=== PATIENT | male | born 1965 | race Two or more races ===

== ENCOUNTER 2025-02-09 21:31 | Inpatient (IN) | payer OTHER ==
[~2025-02-09] VITALS: Ht 190.5 cm; Wt 109.8 kg
[2025-02-09] MEDS ORDERED: MORPHINE SULFATE 4 MG/ML SYR/VIAL IV PRN (21:45)
[2025-02-09] MEDS: ONDANSETRON HCL 4 MG/2 ML VIAL IV ONE (21:45)
--- NOTE | 2025-02-09 21:46 | ED.PDOC ---
HPI Comments 59-year-old male who came to ER via EMS for chest pains. Patient recently had heart attack 8 weeks ago, and had cardiac stents inserted. Patient was apparently well, until 2 hours ago, when he developed sudden onset substernal chest pains, pressure, constant, nonradiating, 8/10 intensity, associated shortness of breath and diaphoresis. Upon arrival of paramedics, patient was given 324 aspirin and 1 nitro, giving symptomatic relief of the pain. EKG taken EN route showed ST changes. Chief Complaint: Chest pain Time Seen by MD: 21:45 Reviewed Notes: Arts Therapist Notes Allergies: Coded Allergies: NO KNOWN ALLERGIES (Unverified , 02/09/25) Information Source: Patient, Emergency Med Personnel Mode of Arrival: EMS Severity: Severe Timing: Hours Duration: Since onset Prehospital treatment: 12 Lead EKG, ASA, NTG, Oxygen Location: Substernal Radiation: No Radiation Quality: Pressure Onset: With Light Exertion Cardiac Risk Factors: HTN, Other (Mi) History of: Similar pain in past, PA Associated Signs and Symptoms: SOB, Diaphoresis Past Medical History PAST MEDICAL HISTORY: HTN, PA Surgical History: PTCA Family History Family History: Reviewed,noncontributory to illness Social History Smoker: Non-Smoker Alcohol: Denies ETOH Use Drugs: Denies Drug Use Lives In: Home Constitutional: denies: chills, diaphoresis, fatigue, fever, malaise, sweats, weakness, others EENTM: denies: blurred vision, double vision, ear bleeding, ear discharge, ear drainage, ear pain, ear ringing, eye pain, eye redness, hearing loss, mouth pain, mouth swelling, nasal discharge, nose bleeding, nose congestion, nose pain, photophobia, tearing, throat pain, throat swelling, voice changes, others Respiratory: reports: SOB at rest, shortness of breath; denies: cough, hemoptysis, orthopnea, SOB with excertion, stridor, wheezing, others Cardiovascular: reports: chest pain, dizzy spells, diaphoresis; denies: Dyspnea on exertion, edema, irregular heart beat, left arm pain, lightheadedness, palpitations, PND, syncope, others Gastrointestinal: denies: abdomen distended, abdominal pain, blood streaked bowels, constipated, diarrhea, dysphagia, difficulty swallowing, hematemesis, melena, nausea, poor appetite, poor fluid intake, rectal bleeding, rectal pain, vomiting, others Genitourinary: denies: burning, dysuria, flank pain, frequency, hematuria, incontinence, penile discharge, penile sore, pain, testicle pain, testicle swelling, urgency, others Neurological: denies: dizziness, fainting, headache, left sided numbness, left sided weakness, numbness, paresthesia, pre-existing deficit, right sided numbness, right sided weakness, seizure, speech problems, tingling, tremors, weakness, others Musculoskeletal: denies: back pain, gout, joint pain, joint swelling, muscle pain, muscle stiffness, neck pain, others Integumetry: denies: bruises, change in color, change in hair/nails, dryness, laceration, lesions, lumps, rash, wounds, others Allergic/Immunocompromised: denies: Difficulty Healing, Frequent Infections, Hives, Itching, others Hematologic/Lymphatic: denies: anemia, blood clots, easy bleeding, easy bruising, swollen glands, others Endocrine: denies: excessive hunger, excessive sweating, excessive thirst, excessive urination, flushing, intolerance to cold, intolerance to heat, unexplained weight gain, unexplained weight loss, others Psychiatric: denies: anxiety, bipolar disorder, depression, hopeless, panic disorder, schizophrenia, sleepless, suicidal, others Physical Exam General Appearance: No Apparent Distress, Normal HEENT: Normal ENT Inspection, Pharynx Normal, TMs Normal Neck: Full Range of Motion, Non-Tender, Normal, Normal Inspection Respiratory: Chest Non-Tender, Lungs Clear, No Accessory Muscle Use, No Respiratory Distress, Normal Breath Sounds Cardiovascular: No Edema, No JVD, No Murmur, No Gallop, Normal Peripheral Pulses, Regular Rate/Rhythm Breast Exam: Deferred Gastrointestinal: No Organomegaly, Non Tender, No Pulsatile Mass, Normal Bowel Sounds, Soft Genitalia: Deferred Pelvic: Deferred Rectal: Deferred Extremities: No calf tenderness, Normal capillary refill, Normal inspection, Normal range of motion, Non-tender, No pedal edema Musculoskeletal : Apperance: Normal Neurologic: Alert, direct support staff member II-XII nml as Tested, No Motor Deficits, Normal Affect, Normal Mood, No Sensory Deficits Cerebellar Function: Normal Reflexes: Normal Skin: Dry, Normal Color, Warm Lymphatic: No Adenopathy EKG EKG : Pulse Rate (adult): 103 Cardiac Rhythm: ST Block: RBBB ST: New, Inf, Infarct Was a procedure done? Was a procedure done?: No CP Differential Dx Differential Diagnosis: Anxiety / Panic Attack, Electrolyte Disorder Differential Diagnosis: Angina, Chest Wall Pain, Costochondritis, Esophageal reflux/spasm, Gastritis, Myocardial Infarction, Pneumonia X-Ray, Labs, Meds, VS Vital Signs Date Time Temp Pulse Resp B/P (MAP) Pulse Ox O2 Delivery O2 Flow Rate FiO2 02/10/25 00:43 88 02/10/25 00:08 83 20 97 Room Air* 0 21 02/10/25 00:08 98.1 80 20 117/72 (87) 97 98.1 02/10/25 00:07 117/74 02/09/25 23:26 100 19 131/93 (106) 92 02/09/25 23:17 117/74 02/09/25 23:07 131/93 02/09/25 22:25 99 02/09/25 22:17 146/94 02/09/25 21:58 97.7 102 21 92 97.7 02/09/25 21:58 102 21 93 Nasal Cannula* 6 44 02/09/25 21:55 146/94 (111) 02/09/25 21:46 103 02/09/25 21:42 98.4 100 20 140/89 97 98.4 02/09/25 21:31 103 Lab Test 02/10/25 00:17 02/09/25 22:25 02/09/25 21:34 Range/Units Troponin I High Sensitivity Pending 50 48 </=54 ng/L White Blood Count 9.5 4.4-10.8 10^3/uL Red Blood Count 4.62 4.5-5.90 10^6/uL Hemoglobin 13.0 L 13.5-17.5 g/dL Hematocrit 38.8 L 41.0-53.0 % Mean Corpuscular Volume 84.1 80.0-100.0 fL Mean Corpuscular Hemoglobin 28.1 28.0-32.0 pg Mean Corpuscular Hemoglobin Concent 33.4 32.0-36.0 g/dL Red Cell Distribution Width 15.2 H 11.8-14.3 % Platelet Count 276 140-450 10^3/uL Mean Platelet Volume 6.8 L 6.9-10.8 fL Neutrophils (%) (Auto) 65.2 37.0-80.0 % Lymphocytes (%) (Auto) 16.5 10.0-50.0 % Monocytes (%) (Auto) 10.6 0.0-12.0 % Eosinophils (%) (Auto) 6.7 0.0-7.0 % Basophils (%) (Auto) 1.0 0.0-2.0 % Neutrophils # (Auto) 6.2 1.6-8.6 10 ^3/uL Lymphocytes # (Auto) 1.6 0.4-5.4 10 ^3/uL Monocytes # (Auto) 1.0 0-1.3 10 ^3/uL Eosinophils # (Auto) 0.6 0-0.8 10 ^3/uL Basophils # (Auto) 0.1 0-0.2 10 ^3/uL Nucleated Red Blood Cells 0.2 % Prothrombin Time 10.6 9.3-11.8 sec Prothrombin Time INR 1.00 0.9-1.15 Activated Partial Thromboplast Time 24.6 24.5-34.5 SEC Sodium Level 143 136-145 mmol/L Potassium Level 4.3 3.5-5.1 mmol/L Chloride Level 112 H 98-107 mmol/L Carbon Dioxide Level 19 L 20-31 mmol/L Anion Gap 12 5-15 Blood Urea Nitrogen 31 H 9-23 mg/dL Creatinine 1.39 H 0.700-1.30 mg/dL Glomerular Filtration Rate Calc 58 >90 mL/min BUN/Creatinine Ratio 22.3 H 10.0-20.0 Serum Glucose 107 H 74-106 mg/dL Calcium Level 9.2 8.7-10.4 mg/dL Magnesium Level 2.3 1.6-2.6 mg/dL Total Bilirubin 0.4 0.2-1.0 mg/dL Aspartate Amino Transferase (AST) 21 13-40 U/L Alanine Aminotransferase (ALT) 10 7-40 U/L Alkaline Phosphatase 184 H 46-116 U/L B-Type Natriuretic Peptide 656.36 0-100 pg/mL Total Protein 7.1 5.7-8.2 g/dL Albumin 4.0 3.2-4.8 g/dL Current Medications Medications (Trade) Dose Ordered Sig/Rah Route Start Time Stop Time Status Last Admin Nitroglycerin (Ntrostat Sublingual) 0.4 mg ONCE ONCE SL 02/09/25 22:15 02/09/25 22:16 DC 02/09/25 22:17 Nitroglycerin (Ntrostat Sublingual) 0.4 mg ONCE PRN SL 02/09/25 23:00 02/09/25 23:07 PROCEDURE(s): CXRP - CHEST PORTABLE REASON: chest pain ORDER NUMBER(s): [id number], ACCESSION NUMBER(s): [id number] INDICATION: chest pain TECHNIQUE: Frontal view of the chest. COMPARISON: None FINDINGS/IMPRESSION: Hazy opacity within the right mid and lower lung. Prominence of the interstitial markings. Enlarged cardiomediastinal silhouette. No definite pleural effusion, though the costophrenic angles are partially excluded from field of view. No pneumothorax. No acute osseous abnormality. Time of 1ST Reevaluation: 21:41 Reevaluation 1ST: Unchanged Patient Education/Counseling: Diagnosis, Treatment Family Education/Counseling: No Family Present SEPSIS Sepsis Screen Physician Orders Chest Portable (02/09/25 21:36) Heplock Iv (02/09/25 21:36) Morphine Sulfate Injection (02/09/25 21:45) Lead Project Manager (02/09/25 21:36) Troponin-I Hs (02/10/25 00:36) Nitroglycerin Sublingual (Ntrostat Subli (02/09/25 23:00) Vital Signs Date Time Temp Pulse Resp B/P (MAP) Pulse Ox O2 Delivery O2 Flow Rate FiO2 02/10/25 00:43 88 02/10/25 00:08 83 20 97 Room Air* 0 21 02/10/25 00:08 98.1 80 20 117/72 (87) 97 98.1 02/10/25 00:07 117/74 02/09/25 23:26 100 19 131/93 (106) 92 02/09/25 23:17 117/74 02/09/25 23:07 131/93 02/09/25 22:25 99 02/09/25 22:17 146/94 02/09/25 21:58 97.7 102 21 92 97.7 02/09/25 21:58 102 21 93 Nasal Cannula* 6 44 02/09/25 21:55 146/94 (111) 02/09/25 21:46 103 02/09/25 21:42 98.4 100 20 140/89 97 98.4 02/09/25 21:31 103 Laboratory Tests Test 02/09/25 21:34 White Blood Count 9.5 10^3/uL (4.4-10.8) Medications Medications Dose Ordered Sig/Rah Route Start Time Stop Time Status Last Admin Dose Admin Nitroglycerin 0.4 mg ONCE ONCE SL 02/09/25 22:15 02/09/25 22:16 DC 02/09/25 22:17 Nitroglycerin 0.4 mg ONCE PRN SL 02/09/25 23:00 02/09/25 23:07 Departure 1 Departure Time of Disposition: : Impression: Primary Impression: Acute coronary syndrome Disposition: ADMITTED INPATIENT Admit to: Tele Condition: Guarded Discharged With: Self Comments 59-year-old male with prior coronary artery disease and had stents placed a few months ago now with suspicious chest pain that was relieved with nitroglycerin. Dr. Cline cardiology was consulted and recommends medical management. Patient was given aspirin. Initial troponin is upper limits of normal at 50. Patient will need to be admitted for supportive care and further cardiac workup. Critical Care Note Critical Care Time?: Yes (35 min-critical care time only) Critical care comment: Acute chest pain Total critical care time: Approximately 36 minutes Due to a high probability of clinically significant, life threatening deterioration, the patient required my highest level of preparedness to intervene emergently and I personally spent this critical care time directly and personally managing the patient. This critical care time included obtaining a history; examining the patient; pulse oximetry; ordering and review of studies; arranging urgent treatment with development of a management plan; evaluation of patient's response to treatment; frequent reassessment; and, discussions with other providers. This critical care time was performed to assess and manage the high probability of imminent, life-threatening deterioration that could result in multi-organ failure. It was exclusive of separately billable procedures and treating other p atients. Stability Stability form required: No Heart Score Heart Score: Heart Score Response (Comments) Value History Moderate Suspicious 1 EKG Repolarization Disturb 1 Age 45-64 1 Risk Factors >3 or Hx ASHD 2 Troponin Normal limit 0 Total 5 I personally scribed for CHELSIE TAYLOR MD ([email or web address]) on 02/09/25 at 21:46. Electronically submitted by Joel Tabares ([email or web address]). I personally scribed for CHELSIE TAYLOR MD ([email or web address]) on 02/09/25 at 22:54. Electronically submitted by Joel Tabares ([email or web address]). CHELSIE TAYLOR MD Feb 09, 2025 21:46
[2025-02-09 21:54] LABS: Hematocrit 38.8 % (41.0-53.0); Hemoglobin 13.0 g/dL (13.5-17.5); Mean Corpuscular Hemoglobin 28.1 pg (28.0-32.0); Mean Corpuscular Volume 84.1 fL (80.0-100.0); Nucleated Red Blood Cells % 0.2 %
[2025-02-09 21:58] VITALS: PULSE 102; RESP 21; O2SAT 93
[2025-02-09 22:11] LABS: Alanine Aminotransferase 10 U/L (7-40); Albumin 4.0 g/dL (3.2-4.8); Anion Gap 12 (5-15); BUN/Creatinine Ratio 22.3 (10.0-20.0); Bilirubin, Total 0.4 mg/dL (0.2-1.0); Calcium 9.2 mg/dL (8.7-10.4); INR 1.0 (0.9-1.15); Magnesium 2.3 mg/dL (1.6-2.6); Partial Thromboplastin Time 24.6 SEC (24.5-34.5); Potassium 4.3 mmol/L (3.5-5.1); Prothrombin Time 10.6 sec (9.3-11.8); Sodium 143 mmol/L (136-145); Total Protein 7.1 g/dL (5.7-8.2)
[2025-02-09 22:14] LABS: Alkaline Phosphatase 184 U/L (46-116); Blood Urea Nitrogen 31 mg/dL (9-23); Carbon Dioxide 19 mmol/L (20-31); Chloride 112 mmol/L (98-107); Glucose 107 mg/dL (74-106)
[2025-02-09] MEDS: NITROGLYCERIN 0.4 MG SL TAB SL ONE (22:17)
--- NOTE | 2025-02-09 22:38 | DVH ---
INDICATION: chest pain TECHNIQUE: Frontal view of the chest. COMPARISON: None FINDINGS/IMPRESSION: Hazy opacity within the right mid and lower lung. Prominence of the interstitial markings. Enlarged cardiomediastinal silhouette. No definite pleural effusion, though the costophrenic angles are parti ally excluded from field of view. No pneumothorax. No acute osseous abnormality.
[2025-02-09] MEDS: NITROGLYCERIN 0.4 MG SL TAB SL PRN (23:07)
--- NOTE | 2025-02-09 23:32 | ECG ---
[facility] Test Date: 2025-02-09 Test Time: 21:30:49 Pat Name: VIMAL DENIS Department: [facility] ED Patient ID: [id number] Room: 0288T Gender: M Trawl Net Maker: MELY : 1965 Requested By: CHELSIE TAYLOR Order Number: [id number] Reading MD: Terrance Villeda Measurements Intervals [place] Rate: 103 P: 63 VA: 184 QRS: -79 QRSD: 165 T: 88 QT: 390 QTc: 511 Interpretive Statements Sinus tachycardia Right bundle branch block Inferior infarct, acute Anterior infarct, old Electronically Signed On 02-11-2025 22:12:42 PDT by Terrance Villeda Please click the below link to view image of tracing.
--- NOTE | 2025-02-09 23:32 | ECG ---
[facility] Test Date: 2025-02-09 Test Time: 22:25:20 Pat Name: VIMAL DENIS [facility] Patient [id number] Room: 0288T Gender: M Dice Table Person: SYD : 1965 Requested By: CHELSIE TAYLOR Order Number: [id number] Reading MD: Terrance Villeda Measurements Intervals [place] Rate: 99 P: 65 MS: 187 QRS: -76 QRSD: 160 T: 80 QT: 401 QTc: 515 Interpretive Statements Sinus rhythm Probable left atrial enlargement Right bundle branch block Inferior infarct, acute Anterior infarct, old Electronically Signed On 02-11-2025 22:12:54 PDT by Terrance Villeda Please click the below link to view image of tracing.
[2025-02-10] VITALS (12 sets, daily range): BP systolic 119–141; BP diastolic 40–105; PULSE 77–102; RESP 18–28; TEMP 97.6–98.8; O2SAT 92–97
--- NOTE | 2025-02-10 00:46 | ECG ---
[facility] Test Date: 2025-02-10 Test Time: 00:43:34 Pat Name: VIMAL DENIS Department: [facility] ED Patient ID: [id number] Room: 0288T Gender: M Marina Sales And Service Supervisor: HUMERA : 1965 Requested By: CHELSIE TAYLOR Order Number: [id number] Reading MD: Terrance Villeda Measurements Intervals [place] Rate: 88 P: 0 SD: 0 QRS: -73 QRSD: 158 T: 92 QT: 429 QTc: 519 Interpretive Statements Atrial fibrillation Right bundle branch block Probable anterolateral infarct, recent Electronically Signed On 02-11-2025 22:13:49 PDT by Terrance Villeda Please click the below link to view image of tracing.
[2025-02-10] MEDS ORDERED: MORPHINE SULFATE INJ 2 MG/ml SYRG IV PRN ×2 (06:30)
[2025-02-10] MEDS: ENOXAPARIN SOD 40 MG/0.4 ML SYRINGE SC ONE (06:30)
[2025-02-10] MEDS ORDERED: ONDANSETRON HCL 4 MG/2 ML VIAL IV PRN (06:30)
[2025-02-10] MEDS: SOD CHL 0.45% 1,000 ML IV ONE (06:30)
--- NOTE | 2025-02-10 06:53 | DVHHP2 ---
Admitting Diagnosis: Chest pain with elevated troponin History of Present Illness HPI 59 y.o. male with CAD, sp stent placement 2 months ago was brought to the ER, c/o sudden onset of substernal pressure-like chest pain, radiating to both arms, 8/10, associated with shortness of breath and cold sweats. Paramedics gave him ASA and Nitro that alleviated his pain. Per ER MD, en route EKG showed ST changes. Patient stated he uses CPAP at night. His troponin was checked 3 times and was progressively elevated Past Medical History Cardiac: CAD, HTN, SD, Hyperlipidemia Pulmonary: COPD H&P Exam Vital Signs Vital Signs Date Time Temp Pulse Resp B/P (MAP) Pulse Ox O2 Delivery O2 Flow Rate FiO2 02/10/25 05:36 98.1 78 20 107/73 (84) 99 98.1 02/10/25 04:07 50 02/10/25 04:02 Facial BiPAP Mask 02/10/25 00:08 0 General Appeara: Obese Head Exam: Normal inspection Neck Exam: Normal inspection Eye Exam: bilateral eye PERRL, bilateral eye EOMI Pulmonary/Respiratory: Crackles Cardiovascular/Chest: Normal Rhythm Abdominal Exam: Soft Neuro/Mental St: Alert, Oriented SEPSIS Sepsis Screen Date sepsis recognized/suspect: Feb 10, 2025 Time Sepsis recognized/suspect: 0013 Recent Procedure: No On Antibiotic Therapy: No Respiratory Rate >20: No Heart Rate >90: No Temp<36 C (96.8 F) or >38.3 C: No SBP <90 or MAP <65 mmHG: No New Acute Mental Status Change: No Is the patient on CPAP, BIPAP,: No Physician Orders Nitroglycerin Sublingual (Ntrostat Subli (02/09/25 23:00) Bipap/Cpap For Sleep Apnea (02/10/25 03:14) Admit (02/10/25 06:29) Complete Blood Count (02/11/25 06:00) Comprehensive Metabolic Panel (02/11/25 06:00) Echo 2d Mode Cardiac Dop (02/10/25 06:29) * Cardiology Consult (02/10/25 06:29) Nitroglycerin Sublingual (Ntrostat Subli (02/10/25 06:30) Morphine Sulfate Injection (02/10/25 06:30) Stat Ekg For Chest Pain (02/10/25 06:29) Notify Md Of Changes From Base (02/10/25 06:29) Sifter Operator For 24 Hours (02/10/25 06:29) Emergency Dysrhythmia Protocol (02/10/25 06:29) Rhythm Strips Once Every Shift (02/10/25 06:29) Oxygen By Nasal Cannula (02/10/25 06:29) Chest Without Contrast (02/10/25 06:29) Sod Chl 0.45% (Sodium Chloride 0.45% Via (02/10/25 06:30) Albuterol Medneb (Ventolin Medneb) (02/10/25 12:00) Ipratropium Medneb (Atrovent Medneb) (02/10/25 12:00) Morphine Sulfate Injection (02/10/25 06:30) Ondansetron Hcl (Zofran) (02/10/25 06:30) Enoxaparin Sodium (Lovenox) (02/10/25 06:30) Vital Signs Date Time Temp Pulse Resp B/P (MAP) Pulse Ox O2 Delivery O2 Flow Rate FiO2 02/10/25 05:36 98.1 78 20 107/73 (84) 99 98.1 02/10/25 04:07 77 18 119/68 95 50 02/10/25 04:02 83 123/40 97 Facial BiPAP Mask 50 02/10/25 02:09 98.1 77 20 119/68 (85) 97 98.1 02/10/25 00:43 88 02/10/25 00:08 83 20 97 Room Air* 0 21 02/10/25 00:08 98.1 80 20 117/72 (87) 97 98.1 02/10/25 00:07 117/74 02/10/25 00:00 95 02/09/25 23:26 100 19 131/93 (106) 92 02/09/25 23:17 117/74 02/09/25 23:07 131/93 Laboratory Tests Test 02/09/25 21:34 White Blood Count 9.5 10^3/uL (4.4-10.8) Medications Medications Dose Ordered Sig/Rah Route Start Time Stop Time Status Last Admin Dose Admin Nitroglycerin 0.4 mg ONCE ONCE SL 02/09/25 22:15 02/09/25 22:16 DC 02/09/25 22:17 0.4 MG Nitroglycerin 0.4 mg ONCE PRN SL 02/09/25 23:00 02/09/25 23:07 0.4 MG Labs/Xrays Labs Test 02/10/25 00:17 02/09/25 21:34 Range/Units Troponin I High Sensitivity 60 *H </=54 ng/L White Blood Count 9.5 4.4-10.8 10^3/uL Red Blood Count 4.62 4.5-5.90 10^6/uL Hemoglobin 13.0 L 13.5-17.5 g/dL Hematocrit 38.8 L 41.0-53.0 % Mean Corpuscular Volume 84.1 80.0-100.0 fL Mean Corpuscular Hemoglobin 28.1 28.0-32.0 pg Mean Corpuscular Hemoglobin Concent 33.4 32.0-36.0 g/dL Red Cell Distribution Width 15.2 H 11.8-14.3 % Platelet Count 276 140-450 10^3/uL Mean Platelet Volume 6.8 L 6.9-10.8 fL Neutrophils (%) (Auto) 65.2 37.0-80.0 % Lymphocytes (%) (Auto) 16.5 10.0-50.0 % Monocytes (%) (Auto) 10.6 0.0-12.0 % Eosinophils (%) (Auto) 6.7 0.0-7.0 % Basophils (%) (Auto) 1.0 0.0-2.0 % Neutrophils # (Auto) 6.2 1.6-8.6 10 ^3/uL Lymphocytes # (Auto) 1.6 0.4-5.4 10 ^3/uL Monocytes # (Auto) 1.0 0-1.3 10 ^3/uL Eosinophils # (Auto) 0.6 0-0.8 10 ^3/uL Basophils # (Auto) 0.1 0-0.2 10 ^3/uL Nucleated Red Blood Cells 0.2 % Prothrombin Time 10.6 9.3-11.8 sec Prothrombin Time INR 1.00 0.9-1.15 Activated Partial Thromboplast Time 24.6 24.5-34.5 SEC Sodium Level 143 136-145 mmol/L Potassium Level 4.3 3.5-5.1 mmol/L Chloride Level 112 H 98-107 mmol/L Carbon Dioxide Level 19 L 20-31 mmol/L Anion Gap 12 5-15 Blood Urea Nitrogen 31 H 9-23 mg/dL Creatinine 1.39 H 0.700-1.30 mg/dL Glomerular Filtration Rate Calc 58 >90 mL/min BUN/Creatinine Ratio 22.3 H 10.0-20.0 Serum Glucose 107 H 74-106 mg/dL Calcium Level 9.2 8.7-10.4 mg/dL Magnesium Level 2.3 1.6-2.6 mg/dL Total Bilirubin 0.4 0.2-1.0 mg/dL Aspartate Amino Transferase (AST) 21 13-40 U/L Alanine Aminotransferase (ALT) 10 7-40 U/L Alkaline Phosphatase 184 H 46-116 U/L B-Type Natriuretic Peptide 656.36 0-100 pg/mL Total Protein 7.1 5.7-8.2 g/dL Albumin 4.0 3.2-4.8 g/dL Assessment/Plan Problem List: (1) Chest pain due to coronary artery disease (2) Troponin level elevated Plan TELE, ECHO, Cardiology consult, CT, CPAP Plan discussed with: Patient MANAS REHMAN MD Feb 10, 2025 06:53
[2025-02-10] MEDS: NITROGLYCERIN 0.4 MG SL TAB SL PRN (07:30)
[2025-02-10] MEDS ORDERED: CLOPIDOGREL BISULFATE 75 MG TAB PO ONE ×2 (07:45→10:00)
--- NOTE | 2025-02-10 08:19 | DVH ---
Procedure: CT CHEST WITHOUT CONTRAST Reason for study/Clinical History: Abnormal CXR Comparison Study: XY CHEST PORTABLE on DOS: 02/09/25 Exam Date: 02/10/2025 07:22 AM TECHNIQUE: Multidetector CT of the chest was performed from the lung apices to the upper abdomen with out the use of intravenous contract. Axial, coronal and sagittal multiplanar reformats were performed . Radiation Dose Information: CT Dose: CTDI volume is 29.65 mGy. Dose-length product is 1332.7 mGy*cm The dose indicators for CT are the volume Computed Tomography (CT) Dose Index (CTDIvol) and the Dose Length Product (DLP), and are measured in units of mGy and mGy-cm, respectively. These indicators are not patient dose, but values generated from the CT scanner acquisition factors. The report includes radiation exposure data for exposures received during this examination. FINDINGS: Lower neck: Normal thyroid. Lungs: Bilateral lower lobe consolidation. Scattered pulmonary nodules for example in the left upper lobe measuring 4 mm and right lower lobe measuring 6 mm. Emphysema noted. Central airways: Patent. Pleura: Small bilateral pleural effusions. No pneumothorax. Heart/Vascular Structures: Normal heart size. There are coronary artery calcifications. No pericardia l effusion. Lymph Nodes: Mediastinal lymphadenopathy present. For reference, a subcarinal lymph node measures 2.0 cm in short axis. Right hilar lymph nodes are enlarged measuring up to 2.0 cm in short axis. Musculoskeletal: No acute osseous abnormality. Soft tissues: Normal. Upper abdomen: Hyperdensity noted in the spleen which could be artifactual secondary to the patient's arms/ beam hardening artifact from Bones. IMPRESSION: 1. Bilateral lower lobe pneumonia. Small bilateral pleural effusions. 2. Pulmonary nodules measuring up to 3 mm. 3. Mediastinal and hilar lymphadenopathy. This may be reactive however metastatic adenopathy or lymph morales not excluded. 4. Hypodensity in the spleen which may be artifactual from the patient's arms however splenic infarct is not excluded. Radiation optimization: All CT scans at this facility use at least one of these dose optimization ada hniques: automated exposure control mA and/or kV adjustment per patient size (includes targeted exam s where dose is matched to clinical indication) or iterative reconstruction.
[2025-02-10] MEDS: OPTISON 3ml Vial for INJ IV ONE (10:08)
[2025-02-10] MEDS: CLOPIDOGREL BISULFATE 75 MG TAB PO SCH (10:13)
[2025-02-10 10:40] LABS: Base Excess -7.0 mmol/L (-2.0-3.0)
[2025-02-10] MEDS: FUROSEMIDE 40 MG/4 ML VIAL IV SCH (10:41)
[2025-02-10] MEDS: FUROSEMIDE 100 MG/10ML VIAL IV ONE (10:41)
[2025-02-10] MEDS: APIXABAN 5 MG TAB PO SCH (11:36)
[2025-02-10] MEDS: CARVEDILOL 3.125 MG TAB PO SCH (11:38)
[2025-02-10] MEDS: IPRATROPIUM BROM 0.5 MG/2.5ML INH SOL NEB SCH (11:42)
[2025-02-10] MEDS: ALBUTEROL SULF 2.5 MG/0.5ML(0.5%) NEB SOLN NEB SCH (11:42)
[2025-02-10] MEDS: AZITHROMYCIN 500MG/ 250ML 250 ML IV SCH (12:40)
[2025-02-10] MEDS ORDERED: TICA90TA PO (16:46)
[2025-02-10] MEDS ORDERED: FURO1TAB33 PO (17:09)
[2025-02-10] MEDS ORDERED: EMPA1TAB3 PO (17:09)
[2025-02-10] MEDS ORDERED: ASPI1TAB20 PO (17:09)
[2025-02-10] MEDS ORDERED: FUROSEMIDE 40 MG TAB PO SCH (18:00)
[2025-02-10] MEDS ORDERED: LEVO75CA3 PO (18:53)
--- NOTE | 2025-02-10 19:00 | DVHINCON2 ---
Date of service: Feb 10, [address] dee dee monroe Reason for Consultation dictated [id number] Family History: Hypertension G8 MOTHER, Onset:50's - 60 G8 FATHER, Onset:60 years & older Allergies: Coded Allergies: NO KNOWN ALLERGIES (Unverified , 02/09/25) Home Meds Active Scripts Albuterol Sulfate (VENTOLIN MDI) 90 Mcg Ih, 90 MCG IN Q4HP PRN, #1 INH 1 Refill Take as needed for shortness of breath. Prov:IRIS WU DO 02/11/25 Methylprednisolone (Medrol Dosepak) 4 Mg Luis Angel, 4 MG PO UD, #21 TAB UAD Prov:IRIS WU DO 02/11/25 Doxycycline (Monohydrate) (Doxycycline) 100 Mg Tab, 100 MG PO BID for 5 Days, #10 TAB 0 Refills Prov:IRIS WU DO 02/11/25 Amoxicillin & Pot Clavulanate (AUGMENTIN TABLET) 875 Mg Tb, 875 MG PO BID for 5 Days, #10 TAB 0 Refills Prov:IRIS WU DO 02/11/25 Sacubitril-Valsartan (Entresto 24-26 mg) 1 Tab Tab, 0.5 TAB PO BID for 30 Days, #30 TAB 1 Refill Prov:IRIS WU DO 02/11/25 Nitroglycerin (NTROSTAT SUBLINGUAL) 0.4 Mg Sl, 0.4 MG SL Q5MINP PRN for 30 Days, #30 TAB 1 Refill Take only as needed for chest pain. If persists, return to ER. Prov:IRIS WU DO 02/11/25 Clopidogrel Bisulfate (CLOPIDOGREL) 75 Mg Tab, 75 MG PO DAILY for 30 Days, #30 TAB 1 Refill Prov:IRIS WU DO 02/11/25 Apixaban Base (ELIQUIS) 5 Mg Tab, 5 MG PO BID for 30 Days, #60 TAB 1 Refill Prov:IRIS WU DO 02/11/25 Reported Medications Cvcwndauekd-Kddfzvsmmveq-Iseek (Trelegy Ellipta 100-62.5-25 Mcg/INH) 1 Aer Aer, 1 AER IN DAILY, AER 02/10/25 Carvedilol (Carvedilol) 3.125 Mg Tab, 1 TAB PO BID, #60 TAB 3 Refills 02/10/25 Atorvastatin Calcium (Lipitor) 40 Mg Tab, 1 TAB PO QPM, #90 TAB 1 Refill 02/10/25 Pantoprazole Sodium Sesquihydr (Protonix) 40 Mg Tab, 40 MG PO DAILY, #30 TAB 02/10/25 Levothyroxine Sodium (Levothyroxine Sodium) 75 Mcg Cap, 75 MCG PO QAM, CAP 02/10/25 Empagliflozin (Jardiance) 25 Mg Tab, 81 MG PO DAILY, TAB 02/10/25 Furosemide (Lasix) 20 Mg Tb, 1 TAB PO DAILY, #90 TAB 1 Refill 02/10/25 Current Medications Current Medications Medications (Trade) Dose Ordered Sig/Rah Route PRN Reason Start Time Stop Time Status Last Admin Morphine Sulfate 2 mg Q4HPRN PRN IV SEVERE PAIN (7-10 PAIN SCALE) 02/09/25 21:45 02/10/25 06:39 DC Nitroglycerin (Ntrostat Sublingual) 0.4 mg ONCE PRN SL FOR CHEST PAIN 02/09/25 23:00 02/10/25 06:39 DC 02/09/25 23:07 Nitroglycerin (Ntrostat Sublingual) 0.4 mg Q5MINP PRN SL FOR CHEST PAIN 02/10/25 06:30 02/10/25 10:30 Morphine Sulfate 2 mg Q30M PRN IV FOR CHEST PAIN 02/10/25 06:30 Albuterol (Ventolin Medneb) 2.5 mg Q6HR NEB 02/10/25 12:00 02/10/25 11:42 Ipratropium [place] (Atrovent Medneb) 0.5 mg Q6HR NEB 02/10/25 12:00 02/10/25 11:42 Morphine Sulfate 2 mg Q4HPRN PRN IV SEVERE PAIN (7-10 PAIN SCALE) 02/10/25 06:30 Ondansetron HCl (Zofran) 4 mg Q6HPRN PRN IV NAUSEA / VOMITING 02/10/25 06:30 Aspirin 81 mg DAILY PO 02/10/25 07:45 Cancel Atorvastatin Calcium (Lipitor) 80 mg HS PO 02/10/25 22:00 Clopidogrel Bisulfate (Plavix) 75 mg DAILY PO 02/10/25 10:00 02/10/25 10:13 Carvedilol (Coreg Tablet) 3.125 mg Q12HR PO 02/10/25 10:00 02/10/25 11:38 Sacubitril/ Valsartan (Entresto 24-26 Mg tab) 0.5 tab BID PO 02/10/25 22:00 Apixaban (Eliquis) 5 mg BID PO 02/10/25 10:00 02/10/25 11:36 Furosemide (Lasix Tablet) 20 mg BIDD PO 02/10/25 18:00 02/10/25 09:43 DC Furosemide (Lasix Injection) 40 mg DAILY IV 02/10/25 10:00 02/10/25 14:13 DC Ceftriaxone Sodium 50 ml @ 100 mls/hr DAILY@09 IV 02/10/25 10:37 02/10/25 11:36 Azithromycin 250 ml @ 125 mls/hr DAILY IV 02/10/25 11:15 02/10/25 12:40 Furosemide (Lasix Injection) 20 mg DAILY IV 02/11/25 10:00 Vital Signs Vital Signs Date Time Temp Pulse Resp B/P (MAP) Pulse Ox O2 Delivery O2 Flow Rate FiO2 02/10/25 17:39 99 24 92 Oxymizer 12 N/A 02/10/25 17:39 97.6 140/102 (115) 97.6 Labs/Diagnostic Data Labs Test 02/10/25 10:34 02/10/25 00:17 02/09/25 21:34 Range/Units Blood Gas Specimen Type Arterial Blood Gas Sample Site Right radial Blood Gas Patient Temperature 37.0 Arterial Blood Date Drawn [id number] Arterial Blood pH 7.437 7.350-7.450 Arterial Blood Partial Pressure CO2 22.7 L 35.0-48.0 mmHg Arterial Blood Partial Pressure O2 75.0 L 83.0-108.0 mmHg Arterial Blood HCO3 15.0 L 21.0-28.0 mmol/L Arterial Blood Oxygen Saturation 94.8 94.0-98.0 % Arterial Blood Base Excess -7.0 L -2.0-3.0 mmol/L Arterial Blood Oxyhemoglobin 93.5 L 94.0-98.0 % Arterial Blood Carboxyhemoglobin 0.8 0.5-1.5 % Arterial Blood Methemoglobin 0.6 0.0-1.5 % Jeromy Test Modified Blood Gas Total Hemoglobin 14.30 13.5-17.5 g/dL Blood Gas Liter Flow 10.00 Blood Gas Modality Oxymizer FiO2 % 72.0 Troponin I High Sensitivity 60 *H </=54 ng/L White Blood Count 9.5 4.4-10.8 10^3/uL Red Blood Count 4.62 4.5-5.90 10^6/uL Hemoglobin 13.0 L 13.5-17.5 g/dL Hematocrit 38.8 L 41.0-53.0 % Mean Corpuscular Volume 84.1 80.0-100.0 fL Mean Corpuscular Hemoglobin 28.1 28.0-32.0 pg Mean Corpuscular Hemoglobin Concent 33.4 32.0-36.0 g/dL Red Cell Distribution Width 15.2 H 11.8-14.3 % Platelet Count 276 140-450 10^3/uL Mean Platelet Volume 6.8 L 6.9-10.8 fL Neutrophils (%) (Auto) 65.2 37.0-80.0 % Lymphocytes (%) (Auto) 16.5 10.0-50.0 % Monocytes (%) (Auto) 10.6 0.0-12.0 % Eosinophils (%) (Auto) 6.7 0.0-7.0 % Basophils (%) (Auto) 1.0 0.0-2.0 % Neutrophils # (Auto) 6.2 1.6-8.6 10 ^3/uL Lymphocytes # (Auto) 1.6 0.4-5.4 10 ^3/uL Monocytes # (Auto) 1.0 0-1.3 10 ^3/uL Eosinophils # (Auto) 0.6 0-0.8 10 ^3/uL Basophils # (Auto) 0.1 0-0.2 10 ^3/uL Nucleated Red Blood Cells 0.2 % Prothrombin Time 10.6 9.3-11.8 sec Prothrombin Time INR 1.00 0.9-1.15 Activated Partial Thromboplast Time 24.6 24.5-34.5 SEC Sodium Level 143 136-145 mmol/L Potassium Level 4.3 3.5-5.1 mmol/L Chloride Level 112 H 98-107 mmol/L Carbon Dioxide Level 19 L 20-31 mmol/L Anion Gap 12 5-15 Blood Urea Nitrogen 31 H 9-23 mg/dL Creatinine 1.39 H 0.700-1.30 mg/dL Glomerular Filtration Rate Calc 58 >90 mL/min BUN/Creatinine Ratio 22.3 H 10.0-20.0 Serum Glucose 107 H 74-106 mg/dL Calcium Level 9.2 8.7-10.4 mg/dL Magnesium Level 2.3 1.6-2.6 mg/dL Total Bilirubin 0.4 0.2-1.0 mg/dL Aspartate Amino Transferase (AST) 21 13-40 U/L Alanine Aminotransferase (ALT) 10 7-40 U/L Alkaline Phosphatase 184 H 46-116 U/L B-Type Natriuretic Peptide 656.36 0-100 pg/mL Total Protein 7.1 5.7-8.2 g/dL Albumin 4.0 3.2-4.8 g/dL Plan discussed with: Patient LAYO JONES MD Feb 10, 2025 19:00
[2025-02-10] MEDS ORDERED: LOSA25TA5 PO (19:43)
[2025-02-10] MEDS ORDERED: PANT40TA2 PO (19:43)
[2025-02-10] MEDS ORDERED: ATOR-507 PO (19:49)
[2025-02-10] MEDS ORDERED: FLUT1AER3 IN (19:49)
[2025-02-10] MEDS ORDERED: CARV3.1240 PO (19:49)
[2025-02-10] MEDS ORDERED: MORPHINE SULFATE 4 MG/ML SYR/VIAL IV PRN (20:30)
[2025-02-10] MEDS: methylPREDNISolone SOD SUCC 40 MG/ML VL IV SCH (20:46)
[2025-02-10] MEDS: SACUBITRIL-VALSARTAN 24mg/26mg TAB PO SCH (20:48)
[2025-02-10] MEDS: ATORVASTATIN 20 MG TAB PO SCH (20:50)
[2025-02-11] VITALS (13 sets, daily range): BP systolic 116–139; BP diastolic 83–95; PULSE 88–103; RESP 18–20; TEMP 97.5–97.9; O2SAT 90–100
--- NOTE | 2025-02-11 00:11 | DVHINCON2 ---
Date of service: Feb 10, 2025 Referring Physician David Reason for Consultation Chest pain, elevated troponin History of Present Illness This is a 59-year-old male with a PMH of HTN, [place] who presented to the ED via EMS for a complaint of chest pain with associated shortness of breath and diaphore sis x2 hours. Upon arrival of paramedics on scene, patient was given 324 aspirin and 1 nitro which gave the patient relief. EKG taken en route showed ST changes. Patient recently had heart attack 8 weeks ago and had cardiac stents placed. . BUN 31, [employer] 1.39, TROP 48 > 50 > 60. Chest x-ray shows hazy opacity within the right mid and lower lung, prominence of the interstitial markings.Patient was admitted to the hospital. I am asked to consult on this patient. Family History: Hypertension G8 MOTHER, Onset:50's - 60 G8 FATHER, Onset:60 years & older Allergies: Coded Allergies: NO KNOWN ALLERGIES (Unverified , 02/09/25) Home Meds Reported Medications Okuvlooupmz-Zundbxfpijzr-Nneus (Trelegy Ellipta 100-62.5-25 Mcg/INH) 1 Aer Aer, 1 AER IN DAILY, AER 02/10/25 Carvedilol (Carvedilol) 3.125 Mg Tab, 1 TAB PO BID, #60 TAB 3 Refills 02/10/25 Atorvastatin Calcium (Lipitor) 40 Mg Tab, 1 TAB PO QPM, #90 TAB 1 Refill 02/10/25 Pantoprazole Sodium Sesquihydr (Protonix) 40 Mg Tab, 40 MG PO DAILY, #30 TAB 02/10/25 Losartan Potassium (Cozaar) 25 Mg Tab, 1 TAB PO DAILY, #30 TAB 5 Refills 02/10/25 Levothyroxine Sodium (Levothyroxine Sodium) 75 Mcg Cap, 75 MCG PO QAM, CAP 02/10/25 Empagliflozin (Jardiance) 25 Mg Tab, 81 MG PO DAILY, TAB 02/10/25 Aspirin (Aspir-81) 81 Mg Tab, 1 TAB PO DAILY, #30 TAB 5 Refills 02/10/25 Furosemide (Lasix) 20 Mg Tb, 1 TAB PO DAILY, #90 TAB 1 Refill 02/10/25 Ticagrelor Base (BRILINTA) 90 Mg Tab, 90 MG PO BID, TAB 02/10/25 Current Medications Current Medications Medications (Trade) Dose Ordered Sig/Rah Route PRN Reason Start Time Stop Time Status Last Admin Morphine Sulfate 2 mg Q4HPRN PRN IV SEVERE PAIN (7-10 PAIN SCALE) 02/09/25 21:45 02/10/25 06:39 DC Nitroglycerin (Ntrostat Sublingual) 0.4 mg ONCE PRN SL FOR CHEST PAIN 02/09/25 23:00 02/10/25 06:39 DC 02/09/25 23:07 Nitroglycerin (Ntrostat Sublingual) 0.4 mg Q5MINP PRN SL FOR CHEST PAIN 02/10/25 06:30 02/10/25 10:30 Morphine Sulfate 2 mg Q30M PRN IV FOR CHEST PAIN 02/10/25 06:30 Albuterol (Ventolin Medneb) 2.5 mg Q6HR NEB 02/10/25 12:00 02/10/25 18:52 Ipratropium [place] (Atrovent Medneb) 0.5 mg Q6HR NEB 02/10/25 12:00 02/10/25 18:52 Morphine Sulfate 2 mg Q4HPRN PRN IV SEVERE PAIN (7-10 PAIN SCALE) 02/10/25 06:30 02/10/25 20:20 DC Ondansetron HCl (Zofran) 4 mg Q6HPRN PRN IV NAUSEA / VOMITING 02/10/25 06:30 Aspirin 81 mg DAILY PO 02/10/25 07:45 Cancel Atorvastatin Calcium (Lipitor) 80 mg HS PO 02/10/25 22:00 Clopidogrel Bisulfate (Plavix) 75 mg DAILY PO 02/10/25 10:00 02/10/25 10:13 Carvedilol (Coreg Tablet) 3.125 mg Q12HR PO 02/10/25 10:00 02/10/25 11:38 Sacubitril/ Valsartan (Entresto 24-26 Mg tab) 0.5 tab BID PO 02/10/25 22:00 Apixaban (Eliquis) 5 mg BID PO 02/10/25 10:00 02/10/25 11:36 Furosemide (Lasix Tablet) 20 mg BIDD PO 02/10/25 18:00 02/10/25 09:43 DC Furosemide (Lasix Injection) 40 mg DAILY IV 02/10/25 10:00 02/10/25 14:13 DC Ceftriaxone Sodium 50 ml @ 100 mls/hr DAILY@09 IV 02/10/25 10:37 02/10/25 11:36 Azithromycin 250 ml @ 125 mls/hr DAILY IV 02/10/25 11:15 02/10/25 12:40 Furosemide (Lasix Injection) 20 mg DAILY IV 02/11/25 10:00 Levothyroxine Sodium (Synthroid Tablet) 75 mcg QAM@0600 PO 02/11/25 06:00 Methylprednisolone Sodium Succinate (Solu Medrol) 40 mg BID IV 02/10/25 22:00 Morphine Sulfate 2 mg Q4HPRN PRN IV SEVERE PAIN (7-10 PAIN SCALE) 02/10/25 20:30 Review of Systems Constitutional: denies: chills, diaphoresis, fatigue, fever, malaise, sweats, weakness, others EENTM: denies: blurred vision, double vision, ear bleeding, ear discharge, ear drainage, ear pain, ear ringing, eye pain, eye redness, hearing loss, mouth pain, mouth swelling, nasal discharge, nose bleeding, nose congestion, nose pain, photophobia, tearing, throat pain, throat swelling, voice changes, others Respiratory: reports: SOB at rest, shortness of breath; denies: cough, hemoptysis, orthopnea, SOB with excertion, stridor, wheezing, others Cardiovascular: reports: chest pain, dizzy spells, diaphoresis; denies: Dyspnea on exertion, edema, irregular heart beat, left arm pain, lightheadedness, palpitations, PND, syncope, others Gastrointestinal: denies: abdomen distended, abdominal pain, blood streaked bowels, constipated, diarrhea, dysphagia, difficulty swallowing, hematemesis, melena, nausea, poor appetite, poor fluid intake, rectal bleeding, rectal pain, vomiting, others Genitourinary: denies: burning, dysuria, flank pain, frequency, hematuria, incontinence, penile discharge, penile sore, pain, testicle pain, testicle swelling, urgency, others Neurological: denies: dizziness, fainting, headache, left sided numbness, left sided weakness, numbness, paresthesia, pre-existing deficit, right sided numbness, right sided weakness, seizure, speech problems, tingling, tremors, weakness, others Musculoskeletal: denies: back pain, gout, joint pain, joint swelling, muscle pain, muscle stiffness, neck pain, others Integumetry: denies: bruises, change in color, change in hair/nails, dryness, laceration, lesions, lumps, rash, wounds, others Allergic/Immunocompromised: denies: Difficulty Healing, Frequent Infections, Hives, Itching, others Hematologic/Lymphatic: denies: anemia, blood clots, easy bleeding, easy bruising, swollen glands, others Endocrine: denies: excessive hunger, excessive sweating, excessive thirst, excessive urination, flushing, intolerance to cold, intolerance to heat, unexplained weight gain, unexplained weight loss, others Psychiatric: denies: anxiety, bipolar disorder, depression, hopeless, panic disorder, schizophrenia, sleepless, suicidal, others Vital Signs Vital Signs Date Time Temp Pulse Resp B/P (MAP) Pulse Ox O2 Delivery O2 Flow Rate FiO2 02/10/25 18:58 102 24 97 02/10/25 18:52 Oxymizer 10 72 72 02/10/25 17:39 97.6 140/102 (115) 97.6 Physical Exam GENERAL: Alert and oriented x 3. No acute distress. EYES: PERRL, EOMI. Anicteric. HENT: Moist mucous membranes. LUNGS: Clear to auscultation bilaterally. CARDIOVASCULAR: Regular rate and rhythm. ABDOMEN: Soft, nontender and nondistended. EXTREMITIES: No edema. NEUROLOGIC: No focal neurological deficits. SKIN: Warm, dry. Labs/Diagnostic Data Labs Test 02/10/25 10:34 02/10/25 00:17 02/09/25 21:34 Range/Units Blood Gas Specimen Type Arterial Blood Gas Sample Site Right radial Blood Gas Patient Temperature 37.0 Arterial Blood Date Drawn [id number] Arterial Blood pH 7.437 7.350-7.450 Arterial Blood Partial Pressure CO2 22.7 L 35.0-48.0 mmHg Arterial Blood Partial Pressure O2 75.0 L 83.0-108.0 mmHg Arterial Blood HCO3 15.0 L 21.0-28.0 mmol/L Arterial Blood Oxygen Saturation 94.8 94.0-98.0 % Arterial Blood Base Excess -7.0 L -2.0-3.0 mmol/L Arterial Blood Oxyhemoglobin 93.5 L 94.0-98.0 % Arterial Blood Carboxyhemoglobin 0.8 0.5-1.5 % Arterial Blood Methemoglobin 0.6 0.0-1.5 % Jeromy Test Modified Blood Gas Total Hemoglobin 14.30 13.5-17.5 g/dL Blood Gas Liter Flow 10.00 Blood Gas Modality Oxymizer FiO2 % 72.0 Troponin I High Sensitivity 60 *H </=54 ng/L White Blood Count 9.5 4.4-10.8 10^3/uL Red Blood Count 4.62 4.5-5.90 10^6/uL Hemoglobin 13.0 L 13.5-17.5 g/dL Hematocrit 38.8 L 41.0-53.0 % Mean Corpuscular Volume 84.1 80.0-100.0 fL Mean Corpuscular Hemoglobin 28.1 28.0-32.0 pg Mean Corpuscular Hemoglobin Concent 33.4 32.0-36.0 g/dL Red Cell Distribution Width 15.2 H 11.8-14.3 % Platelet Count 276 140-450 10^3/uL Mean Platelet Volume 6.8 L 6.9-10.8 fL Neutrophils (%) (Auto) 65.2 37.0-80.0 % Lymphocytes (%) (Auto) 16.5 10.0-50.0 % Monocytes (%) (Auto) 10.6 0.0-12.0 % Eosinophils (%) (Auto) 6.7 0.0-7.0 % Basophils (%) (Auto) 1.0 0.0-2.0 % Neutrophils # (Auto) 6.2 1.6-8.6 10 ^3/uL Lymphocytes # (Auto) 1.6 0.4-5.4 10 ^3/uL Monocytes # (Auto) 1.0 0-1.3 10 ^3/uL Eosinophils # (Auto) 0.6 0-0.8 10 ^3/uL Basophils # (Auto) 0.1 0-0.2 10 ^3/uL Nucleated Red Blood Cells 0.2 % Prothrombin Time 10.6 9.3-11.8 sec Prothrombin Time INR 1.00 0.9-1.15 Activated Partial Thromboplast Time 24.6 24.5-34.5 SEC Sodium Level 143 136-145 mmol/L Potassium Level 4.3 3.5-5.1 mmol/L Chloride Level 112 H 98-107 mmol/L Carbon Dioxide Level 19 L 20-31 mmol/L Anion Gap 12 5-15 Blood Urea Nitrogen 31 H 9-23 mg/dL Creatinine 1.39 H 0.700-1.30 mg/dL Glomerular Filtration Rate Calc 58 >90 mL/min BUN/Creatinine Ratio 22.3 H 10.0-20.0 Serum Glucose 107 H 74-106 mg/dL Calcium Level 9.2 8.7-10.4 mg/dL Magnesium Level 2.3 1.6-2.6 mg/dL Total Bilirubin 0.4 0.2-1.0 mg/dL Aspartate Amino Transferase (AST) 21 13-40 U/L Alanine Aminotransferase (ALT) 10 7-40 U/L Alkaline Phosphatase 184 H 46-116 U/L B-Type Natriuretic Peptide 656.36 0-100 pg/mL Total Protein 7.1 5.7-8.2 g/dL Albumin 4.0 3.2-4.8 g/dL Assessment Chest pain. Elevated troponin. CAD. Thrombus at LV [place]. Plan/Recommendation I agree with your ongoing assessment and care of plan. The patient is advised to see me outpatient in a few days. Echocardiogram. Start Eliquis. Stop aspirin. Continue Plavix. Coreg. Entresto. Spironolactone. Diuretics with Lasix. IV antibiotics as ordered. Morphine for pain management. Additional plan as per the hospital course. A total of 45 minutes was spent reviewing the patient record, examining the patient, making a diagnostic and therapeutic plan, discussing this plan with medical personnel, following up on diagnostic studies and following the patient for clinical stability excluding any and all procedures. At least 50% of this time was spent in direct, [id number] contact. Plan discussed with: Patient JANA THOMPSON MD Feb 10, 2025 20:37
[2025-02-11 04:47] LABS: Urine Protein, UAD Negative (Negative)
[2025-02-11] MEDS: LEVOTHYROXINE SODIUM 25 MCG TAB PO SCH (05:01)
[2025-02-11 08:01] LABS: Anion Gap 11 (5-15); Potassium 4.4 mmol/L (3.5-5.1); Sodium 140 mmol/L (136-145)
[2025-02-11 08:03] LABS: Calcium 9.3 mg/dL (8.7-10.4)
[2025-02-11 08:05] LABS: Carbon Dioxide 20 mmol/L (20-31); Chloride 109 mmol/L (98-107); Hematocrit 40.4 % (41.0-53.0); Hemoglobin 13.9 g/dL (13.5-17.5); Mean Corpuscular Hemoglobin 28.6 pg (28.0-32.0); Mean Corpuscular Volume 83.0 fL (80.0-100.0); Nucleated Red Blood Cells % 0.2 %
[2025-02-11 08:07] LABS: BUN/Creatinine Ratio 23.9 (10.0-20.0)
[2025-02-11 08:09] LABS: Blood Urea Nitrogen 34 mg/dL (9-23); Glucose 132 mg/dL (74-106)
[2025-02-11] MEDS: FUROSEMIDE 40 MG/4 ML VIAL IV SCH (09:46)
--- NOTE | 2025-02-11 10:27 | DVHINCON2 ---
DATE OF CONSULTATION: 02/10/[address] Gomez, thank you so much for letting me participate in the care of the patient. HISTORY OF PRESENT ILLNESS: The patient is a 59-year-old gentleman who was brought in with shortness of breath and chest pain. He had, he says, heart attack ____ about 6-8 weeks ago, and he had a stent placement at that time. He was given Plavix and Eliquis. He says he ran out of the medication and then he started having the sudden onset of substernal pressure and chest pain radiating to both arms with shortness of breath when he was brought into the hospital for further management. He was given aspirin and nitroglycerin. He does have sleep apnea syndrome and uses CPAP at night. He has not been diagnosed to have COPD so far. Basically, CAD, hypertension, [place], and hyperlipidemia. He does not take any medication for COPD, has not been diagnosed. Morbidly obese. On examination, diminished breath sounds bilaterally. A few crackles at the bases ____ well heard. Respirations are 24. He is on 10 liters of oxygen, ____ at this time and mild pedal edema. He says he takes levothyroxine as well as Eliquis and Plavix. White count 9.5, hemoglobin 13.0. Blood gases, 7.43, 22, 75, he is on 10 liters. Chemistry, troponins are elevated. BNP was 656, potassium 4.3, glucose 107. He is getting Lasix once a day, Entresto half twice a day, atorvastatin, nebulizer treatments q. 6 hours, azithromycin, Rocephin, carvedilol, Eliquis, and Plavix. Chest x-ray shows hazy opacity in the right mid and lower lung and prominent interstitial markings. CT chest was done, which showed bilateral lower lobe pneumonia, small bilateral pleural effusions, pulmonary nodules measuring up to 3 mm, mediastinal hilar lymphadenopathy, and the patient says he smoked since the age of 15. He quit about 8 years ago. He smoked about 40 years. IMPRESSION: * Bilateral pneumonia. * COPD exacerbation. * Elevated troponin, * Rule out non-STEMI. * History of [place] two months ago, status post stent, on Plavix and Eliquis. PLAN: I agree with the plan of management so far. Continue levothyroxine and other medications. DuoNeb q. 6 hours and continue the antibiotics and I will add Solu-Medrol 40 IV b.i.d. and bedside spirometry before and after bronchodilators. Neri Cotto MD MA/ANNY/MONICA/CHARLES TID: [id number] RECEIPT: [id number]
--- NOTE | 2025-02-11 10:31 | DVH ---
INDICATION: ANDERSON TECHNIQUE: Multiple real-time sonographic images of the kidneys and bladder were obtained. COMPARISON: None FINDINGS: The right kidney measures 10 cm in length, which is normal in size. There is normal echogen icity of the right kidney. No hydronephrosis. The left kidney measures 10 cm in length, which is normal in size. There is normal echogenicity of th e left kidney. No hydronephrosis. No large intraluminal masses are seen in the bladder. IMPRESSION: 1. Normal sonographic appearance of the kidneys. No hydronephrosis.
[2025-02-11 10:34] LABS: Protein, Urine 25.6 mg/dL (1-14)
[2025-02-11] MEDS ORDERED: CLOP75TA70 PO (10:59)
[2025-02-11] MEDS ORDERED: APIX5TAB PO (10:59)
[2025-02-11] MEDS ORDERED: NITR0.4S29 SL (10:59)
[2025-02-11] MEDS ORDERED: SACU1TAB PO (10:59)
[2025-02-11] MEDS ORDERED: AUG875T PO (10:59)
[2025-02-11] MEDS ORDERED: DOXY-346 PO (11:00)
[2025-02-11] MEDS ORDERED: METH4PAK PO (11:02)
[2025-02-11] MEDS ORDERED: ALBUAER3 IN (11:03)
--- NOTE | 2025-02-11 12:05 | DVHDS2 ---
Discharge Summary Date of Admission Feb 10, 2025 at 06:29 Date of Discharge: Feb 10, 2025 Labs/Diagnostic Data: Laboratory Results Test 02/11/25 07:21 02/11/25 01:30 02/10/25 10:34 02/10/25 00:17 White Blood Count 5.6 10^3/uL (4.4-10.8) Red Blood Count 4.87 10^6/uL (4.5-5.90) Hemoglobin 13.9 g/dL (13.5-17.5) Hematocrit 40.4 % (41.0-53.0) Mean Corpuscular Volume 83.0 fL (80.0-100.0) Mean Corpuscular Hemoglobin 28.6 pg (28.0-32.0) Mean Corpuscular Hemoglobin Concent 34.5 g/dL (32.0-36.0) Red Cell Distribution Width 15.1 % (11.8-14.3) Platelet Count 282 10^3/uL (140-450) Mean Platelet Volume 7.0 fL (6.9-10.8) Neutrophils (%) (Auto) 88.7 % (37.0-80.0) Lymphocytes (%) (Auto) 7.6 % (10.0-50.0) Monocytes (%) (Auto) 3.4 % (0.0-12.0) Eosinophils (%) (Auto) 0.1 % (0.0-7.0) Basophils (%) (Auto) 0.2 % (0.0-2.0) Neutrophils # (Auto) 5.0 10 ^3/uL (1.6-8.6) Lymphocytes # (Auto) 0.4 10 ^3/uL (0.4-5.4) Monocytes # (Auto) 0.2 10 ^3/uL (0-1.3) Eosinophils # (Auto) 0 10 ^3/uL (0-0.8) Basophils # (Auto) 0 10 ^3/uL (0-0.2) Nucleated Red Blood Cells 0.2 % Sodium Level 140 mmol/L (136-145) Potassium Level 4.4 mmol/L (3.5-5.1) Chloride Level 109 mmol/L (98-107) Carbon Dioxide Level 20 mmol/L (20-31) Anion Gap 11 (5-15) Blood Urea Nitrogen 34 mg/dL (9-23) Creatinine 1.42 mg/dL (0.700-1.30) Glomerular Filtration Rate Calc 56 mL/min (>90) BUN/Creatinine Ratio 23.9 (10.0-20.0) Serum Glucose 132 mg/dL (74-106) Calcium Level 9.3 mg/dL (8.7-10.4) Urine Color Light-yellow (Yellow) Urine Clarity Clear (Clear) Urine pH 5.5 (5.0-9.0) Urine Specific [place] 1.015 (1.001-1.035) Urine Protein Negative (Negative) Urine Ketones Negative (Negative) Urine Blood Negative /uL (Negative) Urine Nitrite Negative (Negative) Urine Bilirubin Negative (Negative) Urine Urobilinogen Normal mg/dL (Negative) Urine Leukocyte Esterase Negative /uL (Negative) Urine RBC <1 /hpf (0 - 3) Urine Microscopic WBC < 1 /HPF (0-3) Urine Squamous Epithelial Cells None seen /hpf (<5) Urine Bacteria None seen /hpf (None Seen) Urine Creatinine 75.72 mg/dL (30.0-125.0) Urine Protein/Creatinine Ratio 0.34 Urine Sodium 69 mmol/L (40-220) Urine Glucose 1+ mg/dL (Normal) Urine Total Protein 25.6 mg/dL (1-14) Blood Gas Specimen Type Arterial Blood Gas Sample Site Right radial Blood Gas Patient Temperature 37.0 Arterial Blood Date Drawn [id number] Arterial Blood pH 7.437 (7.350-7.450) Arterial Blood Partial Pressure CO2 22.7 mmHg (35.0-48.0) Arterial Blood Partial Pressure O2 75.0 mmHg (83.0-108.0) Arterial Blood HCO3 15.0 mmol/L (21.0-28.0) Arterial Blood Oxygen Saturation 94.8 % (94.0-98.0) Arterial Blood Base Excess -7.0 mmol/L (-2.0-3.0) Arterial Blood Oxyhemoglobin 93.5 % (94.0-98.0) Arterial Blood Carboxyhemoglobin 0.8 % (0.5-1.5) Arterial Blood Methemoglobin 0.6 % (0.0-1.5) Jeromy Test Modified Blood Gas Total Hemoglobin 14.30 g/dL (13.5-17.5) Blood Gas Liter Flow 10.00 Blood Gas Modality Oxymizer FiO2 % 72.0 Troponin I High Sensitivity 60 ng/L (</=54) Test 02/09/25 21:34 Prothrombin Time 10.6 sec (9.3-11.8) Prothrombin Time INR 1.00 (0.9-1.15) Activated Partial Thromboplast Time 24.6 SEC (24.5-34.5) Magnesium Level 2.3 mg/dL (1.6-2.6) Total Bilirubin 0.4 mg/dL (0.2-1.0) Aspartate Amino Transferase (AST) 21 U/L (13-40) Alanine Aminotransferase (ALT) 10 U/L (7-40) Alkaline Phosphatase 184 U/L (46-116) B-Type Natriuretic Peptide 656.36 pg/mL (0-100) Total Protein 7.1 g/dL (5.7-8.2) Albumin 4.0 g/dL (3.2-4.8) Other Laboratory Tests 02/11/25 07:21 Brief Hx & Hospital Course: Patient is a 59-year-old male with past medical history of recent STEMI 2 months prior with drug-eluting stent placed to the LAD who presented with complaints of chest pain, shortness of breath and diaphoresis. Patient was given nitroglycerin and aspirin which improved his chest pain. EKG was done which showed an old anterior infarct and acute inferior infarct with associated ST changes.. Troponin was done which juan diego from 48-60. TTE was done which showed LVEF of 10% with thrombus at the LV apex. It was recommended that patient be started on Plavix and Eliquis combination. Patient was previously taking Brilinta and aspirin which will be discontinued. In addition to patient's prior medications, patient will be started on Entresto and losartan will be discontinued. Patient was noted to require significant oxygen up to [address] of the chest was done which showed bilateral lower lobe pneumonia with small bilateral pleural effusions. There is also pulmonary nodules measuring up to 3 mm. There was mediastinal and hilar lymphadenopathy. Hypodensity in the spleen was noted which could be artifact in the patient's arm but also splenic infarct. These findings were discussed with the patient and the importance for repeat follow-up outpatient to rule out malignancy. Meanwhile, the patient was treated for bilateral pneumonia with ceftriaxone and azithromycin. Pulmonary was consulted. Patient was started on DuoNebs and IV steroids. His oxygen requirement subsequently improved and he was weaned down to room air. Patient was discharged on combination of Augmentin and doxycycline for an additional 5 days with Medrol Dosepak and albuterol inhaler as needed. Patient was able to ambulate around the hallway without any significant dyspnea. Patient was counseled on his bleeding risks while on Plavix and Eliquis. Patient was advised to return to the ER if he has any head trauma, fall well- controlled bleeding. Patient understood and was in agreement with the treatment plan. Patient was given 1 week off of work and to be returning once cleared by his PCP. Patient given ER return precautions. Overall patient discharged stable condition. Patient to follow-up with cardiology and pulmonary. [facility]. Condition at Discharge: Good Final Diagnosis/Problems List Bilateral Pneumonia Secondary Diagnosis: History of STEMI with DUNCAN to LAD CAD Acute Respiratory Failure likely due to bilateral pneumonia and COPD End Stage CHF, LVEF 10% HTN ANDERSON Discharge Disposition: Home Discharge Instruct/Medications Diet: Cardiac 2g Na,low cholest Activity: Light activity Follow Up/Referral: PCP Pulmonary CARDIO Scheduled Amoxicillin & Pot Clavulanate (Augmentin Tablet), 875 MG PO BID Apixaban Base (Eliquis), 5 MG PO BID Aspirin (Aspir-81), 1 TAB PO DAILY, (Reported) Atorvastatin Calcium (Lipitor), 1 TAB PO QPM, (Reported) Carvedilol (Carvedilol), 1 TAB PO BID, (Reported) Clopidogrel Bisulfate (Clopidogrel), 75 MG PO DAILY Doxycycline (Monohydrate) (Doxycycline), 100 MG PO BID Empagliflozin (Jardiance), 81 MG PO DAILY, (Reported) Beorqzhuguk-Jhdabmdnozum-Oydpz (Trelegy Ellipta 100-62.5-25 Mcg/INH), 1 AER IN DAILY, (Reported) Furosemide (Lasix), 1 TAB PO DAILY, (Reported) Levothyroxine Sodium (Levothyroxine Sodium), 75 MCG PO QAM, (Reported) Losartan Potassium (Cozaar), 1 TAB PO DAILY, (Reported) Methylprednisolone (Medrol Dosepak), 4 MG PO UD Pantoprazole Sodium Sesquihydr (Protonix), 40 MG PO DAILY, (Reported) Sacubitril-Valsartan (Entresto 24-26 mg), 0.5 TAB PO BID Ticagrelor Base (Brilinta), 90 MG PO BID, (Reported) Scheduled PRN Albuterol Sulfate (Ventolin Mdi), 90 MCG IN Q4HP PRN Nitroglycerin (Ntrostat Sublingual), 0.4 MG SL Q5MINP PRN Discharge Statement: "Patient was advised to return to the ER or call 911 if any headaches, dizziness, shortness of breath, chest pain, abdominal pain, bleeding, fevers, or worsening of medical condition. Patient was counseled about treatment plan, medications, possible side effects, patientverbalized understanding. All questions were answered to the best of my ability. This discharge took greater then 30 minutes in planning, reviewing documentation, counseling the patient, and discussing with other team members." ASSESSMENT ASSESSMENT Assessment Bilateral Pneumonia IRIS WU DO Feb 11, 2025 12:05
--- NOTE | 2025-02-11 13:57 | DVHCONRES ---
Date Seen: Feb 11, 2025 Resident Creating Document: EDMUND VANESSA RESIDENT Referring Physician MD BRYCE Reason for Consultation ANDERSON History of Present Illness 59 y.o. male with CAD, s/p stent placement 2 months ago was brought to the ER, c/o sudden onset of substernal pressure-like chest pain, radiating to both arms, 8/10, associated with shortness of breath and cold sweats. Paramedics gave him ASA and Nitro that alleviated his pain. Per ER MD, en route EKG showed ST changes. Patient stated he uses CPAP at night. His troponin was checked 3 times and was progressively elevated. Patient was seen and examined on the bed side. He is alert, Oriented x3. Mentioned Feeling better and no other active complaint this time Past Medical History Hypertension, coronary artery disease , Type 2 diabetes mellitus, COPD, CHF Past Surgical History Status post PTCA x1 Family History: Hypertension G8 MOTHER, Onset:50's - 60 G8 FATHER, Onset:60 years & older Allergies: Coded Allergies: NO KNOWN ALLERGIES (Unverified , 02/09/25) Home Meds Active Scripts Albuterol Sulfate (VENTOLIN MDI) 90 Mcg Ih, 90 MCG IN Q4HP PRN, #1 INH 1 Refill Take as needed for shortness of breath. Prov:IRIS WU DO 02/11/25 Methylprednisolone (Medrol Dosepak) 4 Mg Luis Angel, 4 MG PO UD, #21 TAB UAD Prov:IRIS WU DO 02/11/25 Doxycycline (Monohydrate) (Doxycycline) 100 Mg Tab, 100 MG PO BID for 5 Days, #10 TAB 0 Refills Prov:IRIS WU DO 02/11/25 Amoxicillin & Pot Clavulanate (AUGMENTIN TABLET) 875 Mg Tb, 875 MG PO BID for 5 Days, #10 TAB 0 Refills Prov:IRIS WU DO 02/11/25 Sacubitril-Valsartan (Entresto 24-26 mg) 1 Tab Tab, 0.5 TAB PO BID for 30 Days, #30 TAB 1 Refill Prov:IRIS WU DO 02/11/25 Nitroglycerin (NTROSTAT SUBLINGUAL) 0.4 Mg Sl, 0.4 MG SL Q5MINP PRN for 30 Days, #30 TAB 1 Refill Take only as needed for chest pain. If persists, return to ER. Prov:IRIS WU DO 02/11/25 Clopidogrel Bisulfate (CLOPIDOGREL) 75 Mg Tab, 75 MG PO DAILY for 30 Days, #30 TAB 1 Refill Prov:IRIS WU DO 02/11/25 Apixaban Base (ELIQUIS) 5 Mg Tab, 5 MG PO BID for 30 Days, #60 TAB 1 Refill Prov:IRIS WU DO 02/11/25 Reported Medications Xcledjdbmzv-Ktgpsfpzwrog-Nmbox (Trelegy Ellipta 100-62.5-25 Mcg/INH) 1 Aer Aer, 1 AER IN DAILY, AER 02/10/25 Carvedilol (Carvedilol) 3.125 Mg Tab, 1 TAB PO BID, #60 TAB 3 Refills 02/10/25 Atorvastatin Calcium (Lipitor) 40 Mg Tab, 1 TAB PO QPM, #90 TAB 1 Refill 02/10/25 Pantoprazole Sodium Sesquihydr (Protonix) 40 Mg Tab, 40 MG PO DAILY, #30 TAB 02/10/25 Levothyroxine Sodium (Levothyroxine Sodium) 75 Mcg Cap, 75 MCG PO QAM, CAP 02/10/25 Empagliflozin (Jardiance) 25 Mg Tab, 81 MG PO DAILY, TAB 02/10/25 Furosemide (Lasix) 20 Mg Tb, 1 TAB PO DAILY, #90 TAB 1 Refill 02/10/25 Discontinued Reported Medications Losartan Potassium (Cozaar) 25 Mg Tab, 1 TAB PO DAILY, #30 TAB 5 Refills 02/10/25 Aspirin (Aspir-81) 81 Mg Tab, 1 TAB PO DAILY, #30 TAB 5 Refills 02/10/25 Ticagrelor Base (BRILINTA) 90 Mg Tab, 90 MG PO BID, TAB 02/10/25 Current Medications Current Medications Medications (Trade) Dose Ordered Sig/Rah Route PRN Reason Start Time Stop Time Status Last Admin Atorvastatin Calcium (Lipitor) 80 mg HS PO 02/10/25 22:00 02/10/25 20:50 Sacubitril/ Valsartan (Entresto 24-26 Mg tab) 0.5 tab BID PO 02/10/25 22:00 02/11/25 09:47 Furosemide (Lasix Tablet) 20 mg BIDD PO 02/10/25 18:00 02/10/25 09:43 DC Furosemide (Lasix Injection) 20 mg DAILY IV 02/11/25 10:00 02/11/25 09:46 Levothyroxine Sodium (Synthroid Tablet) 75 mcg QAM@0600 PO 02/11/25 06:00 02/11/25 05:01 Methylprednisolone Sodium Succinate (Solu Medrol) 40 mg BID IV 02/10/25 22:00 02/11/25 09:45 Morphine Sulfate 2 mg Q4HPRN PRN IV SEVERE PAIN (7-10 PAIN SCALE) 02/10/25 20:30 Review of Systems Constitutional: No: Fever, Chills, Sweats, Weakness, Malaise, Other Eyes: No: Pain, Vision change, Conjunctivae inflammation, Eyelid inflammation, Other, Redness ENT: No: Ear pain, Ear discharge, Nose pain, Nose discharge, Nose congestion, Mouth pain, Mouth swelling, Throat pain, Throat swelling, Other Respiratory: Shortness of breath, improving No: Cough, Dry,Wheezing, Hemoptysis, Pleuritic Pain, Sputum, Wheezing, Other Cardiovascular: No: Chest Pain, Palpitations, Orthopnea, Paroxysmal Noc. Dyspnea, Edema, Lt Headedness, Other Gastrointestinal: No: Nausea, Vomiting, Abdominal Pain, Diarrhea, Constipation, Melena, Hematochezia, Other Musculoskeletal: No: other, neck pain, shoulder pain, arm pain, back pain, hand pain, leg pain, foot pain Neurological:; No: Weakness, Numbness, Incoordination, Change in speech, Confusion, Seizures Vital Signs Vital Signs Date Time Temp Pulse Resp B/P (MAP) Pulse Ox O2 Delivery O2 Flow Rate FiO2 02/11/25 13:01 97.9 101 20 96 02/11/25 10:47 132/68 02/11/25 10:00 Room Air* 0 21 Physical Exam Physical examination: General Appearance: Alert, Oriented X3, Cooperative, No acute distress HEENT: Atraumatic, PERRLA, EOMI, Mucous membrane moist/pink Respiratory: Bilateral mild wheezing and crackles Cardiovascular: Regular rate, Normal S1, Normal S2, No murmurs, no chest wall tenderness Abdominal: Normal bowel sounds, Soft, No tenderness, No hepatospenomegaly, No masses Extremities: No clubbing, No cyanosis, No edema, Normal pulses, No tenderness/swelling Skin: No rashes, No breakdown, No significant lesion Neuro: Normal gait, Normal speech, Strength at 5/5 X4 ext, Normal tone, Sensation intact, Cranial nerves 3-12 NL, Reflexes 2+ Psych/Mental Status: Mental status NL, Mood NL Labs/Diagnostic Data Labs Test 02/11/25 07:21 02/11/25 01:30 02/10/25 10:34 02/10/25 00:17 Range/Units White Blood Count 5.6 # 4.4-10.8 10^3/uL Red Blood Count 4.87 4.5-5.90 10^6/uL Hemoglobin 13.9 13.5-17.5 g/dL Hematocrit 40.4 L 41.0-53.0 % Mean Corpuscular Volume 83.0 80.0-100.0 fL Mean Corpuscular Hemoglobin 28.6 28.0-32.0 pg Mean Corpuscular Hemoglobin Concent 34.5 32.0-36.0 g/dL Red Cell Distribution Width 15.1 H 11.8-14.3 % Platelet Count 282 140-450 10^3/uL Mean Platelet Volume 7.0 6.9-10.8 fL Neutrophils (%) (Auto) 88.7 H 37.0-80.0 % Lymphocytes (%) (Auto) 7.6 L 10.0-50.0 % Monocytes (%) (Auto) 3.4 0.0-12.0 % Eosinophils (%) (Auto) 0.1 0.0-7.0 % Basophils (%) (Auto) 0.2 0.0-2.0 % Neutrophils # (Auto) 5.0 1.6-8.6 10 ^3/uL Lymphocytes # (Auto) 0.4 0.4-5.4 10 ^3/uL Monocytes # (Auto) 0.2 0-1.3 10 ^3/uL Eosinophils # (Auto) 0 0-0.8 10 ^3/uL Basophils # (Auto) 0 0-0.2 10 ^3/uL Nucleated Red Blood Cells 0.2 % Sodium Level 140 136-145 mmol/L Potassium Level 4.4 3.5-5.1 mmol/L Chloride Level 109 H 98-107 mmol/L Carbon Dioxide Level 20 20-31 mmol/L Anion Gap 11 5-15 Blood Urea Nitrogen 34 H 9-23 mg/dL Creatinine 1.42 H 0.700-1.30 mg/dL Glomerular Filtration Rate Calc 56 >90 mL/min BUN/Creatinine Ratio 23.9 H 10.0-20.0 Serum Glucose 132 H 74-106 mg/dL Calcium Level 9.3 8.7-10.4 mg/dL Urine Color Light-yellow Yellow Urine Clarity Clear Clear Urine pH 5.5 5.0-9.0 Urine Specific [place] 1.015 1.001-1.035 Urine Protein Negative Negative Urine Ketones Negative Negative Urine Blood Negative Negative /uL Urine Nitrite Negative Negative Urine Bilirubin Negative Negative Urine Urobilinogen Normal Negative mg/dL Urine Leukocyte Esterase Negative Negative /uL Urine RBC <1 0 - 3 /hpf Urine Microscopic WBC < 1 0-3 /HPF Urine Squamous Epithelial Cells None seen <5 /hpf Urine Bacteria None seen None Seen /hpf Urine Creatinine 75.72 30.0-125.0 mg/dL Urine Protein/Creatinine Ratio 0.34 Urine Sodium 69 40-220 mmol/L Urine Glucose 1+ H Normal mg/dL Urine Total Protein 25.6 H 1-14 mg/dL Blood Gas Specimen Type Arterial Blood Gas Sample Site Right radial Blood Gas Patient Temperature 37.0 Arterial Blood Date Drawn [id number] Arterial Blood pH 7.437 7.350-7.450 Arterial Blood Partial Pressure CO2 22.7 L 35.0-48.0 mmHg Arterial Blood Partial Pressure O2 75.0 L 83.0-108.0 mmHg Arterial Blood HCO3 15.0 L 21.0-28.0 mmol/L Arterial Blood Oxygen Saturation 94.8 94.0-98.0 % Arterial Blood Base Excess -7.0 L -2.0-3.0 mmol/L Arterial Blood Oxyhemoglobin 93.5 L 94.0-98.0 % Arterial Blood Carboxyhemoglobin 0.8 0.5-1.5 % Arterial Blood Methemoglobin 0.6 0.0-1.5 % Jeromy Test Modified Blood Gas Total Hemoglobin 14.30 13.5-17.5 g/dL Blood Gas Liter Flow 10.00 Blood Gas Modality Oxymizer FiO2 % 72.0 Troponin I High Sensitivity 60 *H </=54 ng/L Test 02/09/25 21:34 Range/Units Prothrombin Time 10.6 9.3-11.8 sec Prothrombin Time INR 1.00 0.9-1.15 Activated Partial Thromboplast Time 24.6 24.5-34.5 SEC Magnesium Level 2.3 1.6-2.6 mg/dL Total Bilirubin 0.4 0.2-1.0 mg/dL Aspartate Amino Transferase (AST) 21 13-40 U/L Alanine Aminotransferase (ALT) 10 7-40 U/L Alkaline Phosphatase 184 H 46-116 U/L B-Type Natriuretic Peptide 656.36 0-100 pg/mL Total Protein 7.1 5.7-8.2 g/dL Albumin 4.0 3.2-4.8 g/dL Assessment Assessment and plan: # ANDERSON in the setting of sepsis prerenal/hemodynamically mediated # Sepsis secondary to bilateral community-acquired Gram-positive/Gram-negative pneumonia # Acute hypoxic respiratory failure secondary to pneumonia/ acute exacerbation of chronic COPD # Possible NSTEMI type 2 secondary to above # coronary artery disease, status post PTCA x1 # Acute on chronic systolic heart failure with reduced ejection fraction Plan: - Kidney ultrasound demonstrated normal study - Pending urine sodium, creatinine and protein/creatinine ratio - Continue antihypertensive for optimize control of blood pressure - IV Lasix 20 mg daily - Continue IV antibiotic and other management as per primary - Appreciate cardiology consultation - strict I&O - Avoid nephrotoxic medication - monitor BMP Plan discussed with Dr. Aguilar Addendum Patient seen and examined, plan discussed with resident. Agree with above, we will follow closely Plan discussed with: Patient, Other (RN) EDMUND VANESSA RESIDENT Feb 11, 2025 13:57 DIOR AGUILAR MD Feb 11, 2025 21:19
--- NOTE | 2025-02-11 17:58 | DVHSR ---
APPROVED REPORT EXAM: Two-dimensional and M-mode echocardiogram with Doppler and color Doppler. Blood Pressure: 107/73 mmHg INDICATION CP with elevated troponin RISK FACTORS Obesity: Height: 6'3", Weight: 240 DIMENSIONS LVDd (3.8-5.7cm)LA (2D)4.9 (1.9-4.0cm)Aortic Root (2.0-3.7cm) EF (%) 25.0 (55-70%)Rt. Atrium4.3 (1.9-4.0cm)Asc. Aorta cm IVSd (0.7-1.1cm)RV (D)4.1 (1.8-2.4cm) Mitral Valve MitralMitral Stenosis E wave1.12m/sMV Mean GR.mmHg E/A ratio0.02D MVAcm2 Aortic Valve Aortic ValveAortic Stenosis V10.50m/Rosaura Mean GR.3mmHg V21.08m/Rosaura Peak GR.5mmHg LVOT Diameter1.9 (1.8-2.4cm)Doppler AVA1.31cm2 Tricuspid Valve TR Velocity3.64m/s [id number] Other Information Technically limited study due to body habitus. Conclusion APICAL AND ENTIRE ANTERIOR WALLDYSKINESIS IT IS ANEURYSM LV EF IS ONLY 15% LUNAR SHAPE THIN EDGE THROMBUS IN ANEURYSM MODERATELY DILATED LA,RA AND RV NORMAL VALVES NO EFFUSION MODERATELY SEVERE DEGREE PULMONARY HYPERTENSION RVSP IS 53 MM OF HG AND IS VERY HIGH
--- NOTE | 2025-02-11 21:55 | DVHPN2 ---
Progress Note - Dictate Date Seen: Feb 11, 2025 Medical Necessity Reason Pt with a Central, PICC or Fol: No Subjective Patient was seen and evaluated in follow up. Patient reports feeling better today. Renal US is unremarkable. 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 Echocardiogram shows LV EF of only 15%. Telemetry reviewed. vital signs Vital Sign Date Time Temp Pulse Resp B/P (MAP) Pulse Ox O2 Delivery O2 Flow Rate FiO2 02/11/25 10:47 84 132/68 02/11/25 10:00 93 Room Air* 0 21 02/11/25 08:36 97.6 20 97.6 Total Intake and Output 02/10/25 02/10/25 02/11/25 15:00 23:00 07:00 Intake Total 425 ml 250 ml 640 ml Output Total 1200 ml 475 ml 500 ml Balance -775 ml -225 ml 140 ml medications Current Medications Medications Dose Ordered Sig/Rah Route Start Time Stop Time Status Last Admin Dose Admin Nitroglycerin 0.4 mg Q5MINP PRN SL 02/10/25 06:30 02/10/25 10:30 0.4 MG Morphine Sulfate 2 mg Q30M PRN IV 02/10/25 06:30 Albuterol 2.5 mg Q6HR NEB 02/10/25 12:00 02/11/25 11:55 2.5 MG Ipratropium [place] 0.5 mg Q6HR NEB 02/10/25 12:00 02/11/25 11:54 0.5 MG Ondansetron HCl 4 mg Q6HPRN PRN IV 02/10/25 06:30 Aspirin 81 mg DAILY PO 02/10/25 07:45 Cancel Atorvastatin Calcium 80 mg HS PO 02/10/25 22:00 02/10/25 20:50 80 MG Clopidogrel Bisulfate 75 mg DAILY PO 02/10/25 10:00 02/11/25 09:48 75 MG Carvedilol 3.125 mg Q12HR PO 02/10/25 10:00 02/11/25 09:47 3.125 MG Sacubitril/ Valsartan 0.5 tab BID PO 02/10/25 22:00 02/11/25 09:47 0.5 TAB Apixaban 5 mg BID PO 02/10/25 10:00 02/11/25 09:47 5 MG Ceftriaxone Sodium 50 ml @ 100 mls/hr DAILY@09 IV 02/10/25 10:37 02/11/25 09:49 100 MLS/HR Azithromycin 250 ml @ 125 mls/hr DAILY IV 02/10/25 11:15 02/11/25 09:49 125 MLS/HR Furosemide 20 mg DAILY IV 02/11/25 10:00 02/11/25 09:46 20 MG Levothyroxine Sodium 75 mcg QAM@0600 PO 02/11/25 06:00 02/11/25 05:01 75 MCG Methylprednisolone Sodium Succinate 40 mg BID IV 02/10/25 22:00 02/11/25 09:45 40 MG Morphine Sulfate 2 mg Q4HPRN PRN IV 02/10/25 20:30 objective GENERAL: Alert and oriented x 3. No acute distress. EYES: PERRL, EOMI. Anicteric. HENT: Moist mucous membranes. LUNGS: Clear to auscultation bilaterally. CARDIOVASCULAR: Regular rate and rhythm. ABDOMEN: Soft, nontender and nondistended. EXTREMITIES: No edema. NEUROLOGIC: No focal neurological deficits. SKIN: Warm, dry. laboratory and microbiology Laboratory Tests 02/11/25 07:21 Test 02/11/25 07:21 Range/Units Serum Glucose 132 H 74-106 mg/dL Problem List Chest pain. Elevated troponin. CAD. Thrombus at LV [place]. Pulmonary HTN. Assessment/Plan Continued all current supportive medical care. Eliquis. Stop aspirin. Plavix. Coreg. Entresto. Spironolactone. Diuretics with Lasix. IV antibiotics as ordered. Morphine for pain management. Additional plan as per the hospital course. Plan discussed with: Patient JANA THOMPSON MD Feb 11, 2025 13:04
--- NOTE | 2025-02-25 07:17 | ECG ---
[facility] Test Date: 2025-02-10 Test Time: 12:47:31 Pat Name: VIMAL DENIS Department: [facility] ED Patient ID: [id number] Room: 0288T A Gender: M Network Announcer: gp : 1965 Requested By: CHELSIE TAYLOR Order Number: [id number] Reading MD: Measurements Intervals [place] Rate: 95 P: 69 PA: 187 QRS: -77 QRSD: 158 T: 82 QT: 406 QTc: 511 Interpretive Statements Sinus rhythm Probable left atrial enlargement Right bundle branch block Anterior infarct, acute (LAD) Please click the below link to view image of tracing.
== END 2025-02-11 14:30 | disposition home or self-care (01) | DRG 280 ==
LOC: ER 21:31 → EDBD 21:31 → OVERFLOW 02-10 06:29 → TELE-WESTW 02-10 17:12
PROVIDERS: ADMIT Internal Medicine; ATTEND Internal Medicine
PROC: 5A09357 Assistance with Respiratory Ventilation, Less than 24 Consecutive Hours, Continuous Positive Airway Pressure (ICD-10-PCS; principal; 2025-02-10)
DX: I11.0 Hypertensive heart disease with heart failure (principal); I50.23 Acute on chronic systolic (congestive) heart failure; I21.A1 Myocardial infarction type 2; J96.01 Acute respiratory failure with hypoxia; J15.69 Pneumonia due to other Gram-negative bacteria; J15.9 Unspecified bacterial pneumonia; J44.1 Chronic obstructive pulmonary disease with (acute) exacerbation; N17.9 Acute kidney failure, unspecified; J44.0 Chronic obstructive pulmonary disease with (acute) lower respiratory infection; I25.10 Atherosclerotic heart disease of native coronary artery without angina pectoris; E78.5 Hyperlipidemia, unspecified; E11.9 Type 2 diabetes mellitus without complications; I50.84 End stage heart failure; D73.5 Infarction of spleen; Z95.5 Presence of coronary angioplasty implant and graft; Z82.49 Family history of ischemic heart disease and other diseases of the circulatory system; Z87.891 Personal history of nicotine dependence; Z79.02 Long term (current) use of antithrombotics/antiplatelets; I25.2 Old myocardial infarction
CPT/HCPCS: 36415; 36600; 71045; 71250; 76775; 80048; 80053; 81001; 82570; 82805; 83735; 83880; 84156; 84300; 84484; 85025; 85610; 85730; 93005; 93306; 94060; 94640; 94660; 99291; G0378; Q9956